=== PATIENT | female | born 1955 | race Two or more races ===

== ENCOUNTER 2017-11-03 14:18 | Outpatient (CLI) | payer OTHER | END 2017-11-03 15:39 | disposition home or self-care (01) | LOC: MAMO-SONO 14:18 | DX: N60.11 Diffuse cystic mastopathy of right breast (principal); N60.12 Diffuse cystic mastopathy of left breast; Z12.31 Encounter for screening mammogram for malignant neoplasm of breast ==

== ENCOUNTER 2017-11-09 14:10 | Outpatient (CLI) | payer OTHER | END 2017-11-09 14:12 | disposition home or self-care (01) | LOC: NUCLEAR 14:10 | DX: M89.9 Disorder of bone, unspecified (principal) ==

== ENCOUNTER 2017-12-14 09:15 | Outpatient (CLI) | payer OTHER | END 2017-12-14 09:28 | disposition home or self-care (01) | LOC: RAD 09:15 | DX: M54.5 Low back pain (principal) ==

== ENCOUNTER 2019-01-04 14:10 | Outpatient (CLI) | payer OTHER | END 2019-01-04 14:13 | disposition home or self-care (01) | LOC: MAMO-SONO 14:10 | DX: N60.11 Diffuse cystic mastopathy of right breast (principal); N60.12 Diffuse cystic mastopathy of left breast; R10.32 Left lower quadrant pain; R10.31 Right lower quadrant pain; Z12.31 Encounter for screening mammogram for malignant neoplasm of breast; Z87.898 Personal history of other specified conditions ==

== ENCOUNTER 2020-04-24 13:45 | Outpatient (CLI) | payer OTHER | END 2020-04-24 13:46 | disposition home or self-care (01) | LOC: SONOGRAMA 13:45 | PROVIDERS: ATTEND Specialist | DX: N95.1 Menopausal and female climacteric states (principal) ==

== ENCOUNTER → 2021-02-17 13:57 | Outpatient (CLI) | payer OTHER | END | disposition home or self-care (01) | LOC: NUCLEAR 05-12 13:00 | PROVIDERS: ATTEND General Practice | DX: M81.0 Age-related osteoporosis without current pathological fracture (principal); Z13.820 Encounter for screening for osteoporosis ==

== ENCOUNTER 2021-03-03 08:44 | Outpatient (CLI) | payer OTHER | END 2021-03-03 08:49 | disposition home or self-care (01) | LOC: TOM 08:44 | PROVIDERS: ATTEND Internal Medicine Gastroenterology | DX: K57.90 Diverticulosis of intestine, part unspecified, without perforation or abscess without bleeding (principal) ==

== ENCOUNTER 2022-02-18 08:18 | Outpatient (CLI) | payer OTHER | END 2022-02-18 08:20 | disposition home or self-care (01) | LOC: MRI 08:18 | DX: M54.16 Radiculopathy, lumbar region (principal) ==

== ENCOUNTER 2022-04-20 08:19 | Outpatient (CLI) | payer OTHER | END 2022-04-20 08:29 | disposition home or self-care (01) | LOC: SONOGRAMA 08:19 | PROVIDERS: ATTEND Emergency Medicine | DX: M06.4 Inflammatory polyarthropathy (principal); M05.9 Rheumatoid arthritis with rheumatoid factor, unspecified ==

== ENCOUNTER 2022-04-22 07:11 | Outpatient (CLI) | payer OTHER | END 2022-04-22 07:13 | disposition home or self-care (01) | LOC: NUCLEAR 07:11 | PROVIDERS: ATTEND Emergency Medicine | DX: M06.4 Inflammatory polyarthropathy (principal); M05.9 Rheumatoid arthritis with rheumatoid factor, unspecified; I82.403 Acute embolism and thrombosis of unspecified deep veins of lower extremity, bilateral; I73.89 Other specified peripheral vascular diseases; I87.2 Venous insufficiency (chronic) (peripheral) | CPT/HCPCS: 78315; 93925; A9503 ==

== ENCOUNTER 2022-10-05 12:07 | Outpatient (CLI) | payer OTHER | END 2022-10-05 12:13 | disposition home or self-care (01) | LOC: SONOGRAMA 12:07 | PROVIDERS: ATTEND Internal Medicine Endocrinology, Diabetes & Metabolism | DX: E04.1 Nontoxic single thyroid nodule (principal) ==

== ENCOUNTER 2022-10-27 07:07 | Outpatient (CLI) | payer OTHER | END 2022-10-27 07:08 | disposition home or self-care (01) | LOC: NUCLEAR 07:07 | PROVIDERS: ATTEND Internal Medicine Endocrinology, Diabetes & Metabolism | DX: M81.0 Age-related osteoporosis without current pathological fracture (principal); E21.3 Hyperparathyroidism, unspecified | CPT/HCPCS: 77080; 78071; A9500 ==

== ENCOUNTER 2024-04-10 09:33 | Emergency (ER) | payer OTHER ==
[~2024-04-10] VITALS: Ht 154.9 cm; Wt 59.9 kg
[2024-04-10] MEDS ORDERED: PLAVIX75 MG (09:46)
[2024-04-10] MEDS ORDERED: CARVEDILOL12.5 MG (09:46)
[2024-04-10] MEDS ORDERED: AVAPRO150 MG (09:48)
[2024-04-10] MEDS ORDERED: CRESTOR40 MG PO (09:48)
[2024-04-10 11:26] LABS: HEMATOCRIT 37.7 % (36.0-45.00); HEMOGLOBIN 12.6 g/dL (12.0-15.00); MEAN CELL VOLUME 92.4 fL (80.00-100.00); MEAN CORPUSCULAR HEMOGLOBIN 30.8 pg (27.00-32.0); MEAN CORPUSCULAR HGB CONC 33.3 g/dl (32.0-36.0); PLATELET COUNT 268 K/uL (150-450); RED BLOOD COUNT 4.08 M/uL (4.00-6.00); RED CELL DISTRIBUTION WIDTH 13.1 % (11.5-14.5)
[2024-04-10 11:48] LABS: PH,URINE 6.5 (5.0-8.0); URINE APPEARANCE Clear; URINE BACTERIA 190.1 uL (0.0-1933); URINE BILIRRUBIN Negative (NEGATIVE); URINE BLOOD Negative; URINE CAST 1.98 uL (0.0-1.40); URINE COLOR Yellow; URINE EPITHELIAL CELLS 39.4 uL (0.0-38.8); URINE GLUCOSE Negative (NEGATIVE); URINE KETONE Negative (NEGATIVE); URINE LEUKOCYTE Moderate; URINE NITRATE Negative; URINE PROTEIN Negative (NEGATIVE); URINE RBC 2.5 uL (0.0-20.8); URINE UROBILINOGEN 0.2 E.U./dl; URINE WBC 25.1 uL (0.0-23.2)
[2024-04-10 12:33] LABS: ALBUMIN 4.4 gm/dL (3.4-5.0); BILIRUBIN TOTAL 0.64 mg/dL (0.3-1.2); CREATININE SERUM 0.81 mg/dL (0.55-1.02); GFR 69.9; GLOBULINA 4.1 G/DL (2.4-3.5); POTASSIUM 4.17 mEq/L (3.5-5.1); TOTAL PROTEIN 8.5 gm/dL (6.4-8.2)
[2024-04-10] MEDS ORDERED: LOSARTAN POTASSIUM 25 MG TABLET PO ONE (15:45)
== END 2024-04-10 17:04 | disposition home or self-care (01) ==
LOC: ER 09:34
PROVIDERS: Emergency Medicine
DX: R42 Dizziness and giddiness (principal); R53.1 Weakness; I10 Essential (primary) hypertension; Z88.0 Allergy status to penicillin; Z88.6 Allergy status to analgesic agent

== ENCOUNTER 2024-11-21 10:19 | Outpatient (CLI) | payer OTHER ==
[~2024-11-21 10:19] MED LIST: AVAPRO150 MG; CARVEDILOL12.5 MG; CRESTOR40 MG PO; PLAVIX75 MG
== END 2024-11-21 10:20 | disposition home or self-care (01) ==
LOC: NUCLEAR 10:19
PROVIDERS: ATTEND General Practice
DX: M85.80 Other specified disorders of bone density and structure, unspecified site (principal); M81.0 Age-related osteoporosis without current pathological fracture